=== PATIENT | male | born 2000 | race African-American/Black ===

== ENCOUNTER 2018-10-07 03:47 | Emergency (ER) | payer MEDICAID, SELFPAY ==
[2018-10-07] MEDS ORDERED: Ondansetron ODT 4 MG TAB ONE ×2 (03:55→03:59)
[2018-10-07] MEDS ORDERED: Morphine 10 MG/ML VIAL ONE (03:55)
--- NOTE | 2018-10-07 07:58 | RAD ---
Exam: XR Shoulder Lt Ltd Survey HISTORY: Trauma. Left shoulder pain after injury. COMPARISON: None FINDINGS: The left humeral head is dislocated inferiorly and medially suggesting an anterior shoulder dislocati on. No obvious fracture is seen. No other osseous abnormality. IMPRESSION: Left anterior shoulder dislocation.
--- NOTE | 2018-10-07 07:59 | RAD ---
Exam: XR Shoulder Lt 2 View HISTORY: Post reduction of anterior left shoulder dislocation COMPARISON: 10/07/2018 at 0408 hours. FINDINGS: There is been interval reduction in the previously noted left anterior shoulder dislocation. No acute fracture, dislocation, or other acute osseous abnormality is identified on this exam. IMPRESSION: Interval reduction in the left anterior shoulder dislocation. No dislocation is seen on this exam, an d there is no evidence of fracture involving the left shoulder.
== END 2018-10-07 04:43 | disposition home or self-care (01) ==
LOC: ERS 03:47
DX: S43.005A Unspecified dislocation of left shoulder joint, initial encounter (principal); W10.9XXA Fall (on) (from) unspecified stairs and steps, initial encounter
CPT/HCPCS: 23650; 96374; J2270; Q0162

== ENCOUNTER 2020-04-10 11:17 | Emergency (ER) | payer SELFPAY ==
[2020-04-10] MEDS ORDERED: Acetaminophen 500 MG TAB ONE (11:25)
[2020-04-10] MEDS ORDERED: Dexamethasone 10 MG/ML VIAL ONE (12:16)
[2020-04-10 17:11] LABS: SARS-CoV-2 MS2 Positive; SARS-CoV-2 N Gene Negative; SARS-CoV-2 S Gene Negative; SARS-CoV-2 by NAA Not Detected (NotDetected); SARS-CoV-2 orf1ab Negative
== END 2020-04-10 12:21 | disposition home or self-care (01) ==
LOC: ERS 11:17
DX: J02.0 Streptococcal pharyngitis (principal); Z20.822 Contact with and (suspected) exposure to COVID-19
CPT/HCPCS: 87635; 99283; J1100; U0003

== ENCOUNTER 2021-11-03 21:24 | Emergency (ER) | payer SELFPAY ==
[2021-11-03] MEDS ORDERED: Metoclopramide HCl 10 MG/2 ML VIAL ONE (22:28)
[2021-11-03] MEDS ORDERED: Ketorolac Tromethamine 30 MG/ML VIAL ONE (22:28)
[2021-11-03] MEDS ORDERED: diphenhydrAMINE 50 MG/ML VIAL ONE (22:28)
[2021-11-03 22:50] LABS: #Basophils 0.1 thou/uL (0.0-0.2); #Eosinphils 0.5 thou/uL (0.0-0.7); #Lymphocytes 2.9 thou/uL (1.20-3.40); #Monocytes 0.6 thou/uL (0.11-0.59); #Neutrophils 11.2 thou/uL (1.40-6.50); %Basophils 0.3 % (0.0-1.0); %Eosinophils 3.5 % (0.0-10.0); %Lymphocytes 19.1 % (21.0-51.0); %Monocytes 3.9 % (0.0-10.0); %Neutrophils 73.2 % (42.0-75.0); Hemoglobin 14.3 g/dL (14.0-18.0); Mean Corpuscular HGB CONC 31.5 g/dL (32.0-36.0); Mean Corpuscular Hemoglobin 30.6 pg (27.0-31.0); Mean Corpuscular Volume 97.3 fL (78.0-98.0); Mean Platelet Volume 6.5 fL (7.4-10.4); Platelet Count 369 thou/uL (130-400); RBC Distribution Width 12.9 % (11.5-14.5); Red Blood Cell (RBC) Count 4.67 mill/uL (4.70-6.10); White Blood Cell (WBC) Count 15.3 thou/uL (4.8-10.8)
[2021-11-03] MEDS ORDERED: Acetaminophen 500 MG TAB ONE (23:00)
[2021-11-03 23:25] LABS: ALT (SGPT) 25 U/L (8-55); AST (SGOT) 22 U/L (5-34); Albumin 4.2 g/dL (3.5-5.0); Alkaline Phosphatase 68 U/L (40-110); Anion Gap 14 mmol/L (10-20); BUN (Urea Nitrogen) 14 mg/dL (8.9-20.6); Bilirubin, Total 0.3 mg/dL (0.2-1.2); CK (CPK) 186 U/L (30-200); Calc. Creatinine Clearance 0 mL/min (70-130); Carbon Dioxide 27 mmol/L (22-29); Chloride 103 mmol/L (98-107); Estimated GFR 71; Globulin 3.5 g/dL (2.4-3.5); Glucose 105 mg/dL (70-105); Potassium 3.9 mmol/L (3.5-5.1); Protein, Total 7.7 g/dL (6.0-8.3); Sodium 140 mmol/L (136-145)
== END 2021-11-03 23:41 | disposition home or self-care (01) ==
LOC: ERS 21:24
DX: E86.0 Dehydration (principal); R51.9 Headache, unspecified
CPT/HCPCS: 36415; 80053; 82550; 85025; 99284; J1200; J1885; J2765

== ENCOUNTER 2021-12-12 10:16 | Emergency (ER) | payer SELFPAY ==
[2021-12-12] MEDS ORDERED: Ondansetron ODT 8 MG TAB ONE (11:46)
== END 2021-12-12 12:10 | disposition home or self-care (01) ==
LOC: ERS 10:16
DX: R11.2 Nausea with vomiting, unspecified (principal); R19.7 Diarrhea, unspecified
CPT/HCPCS: 99283; Q0162